=== PATIENT | male | born 1955 | race Caucasian/White ===

== ENCOUNTER → 2018-08-27 | Outpatient (CLI) | payer BC ==
--- NOTE | 2018-08-28 08:35 | PCVCIMAG ---
APPROVED REPORT Study performed: 08/27/2018 16:31:32 Exam: Stress Echocardiogram Indication: Hyperlipidemia, Hypertension, Family history of CAD Patient Location: Echo lab Stress Nurse: Linnette Graf RN Status: routine Ht: 6 ft 0 in HR: 98 bpm BP: 130/80 mmHg Rhythm: NSR Medical History Medical History: Hyperlipidemia, HTN Exercise History: Physically active Procedure The patient underwent an Exercise Stress Test using the Denzel Protocol. Blood pressure, heart rate, and EKG were monitored. An Echocardiogram was performed by tire technician in four stages in quad fashion. At peak stress, four selected images were obtained and placed side by side with resting images for comparison. Stress Test Details Stress Test: Exercise stress testing was performed using a Denzel protocol. HR Resting HR: 98 bpmMax Heart Rate (APMHR): 160 bpm Max HR Achieved: 157 bpmTarget HR (85% APMHR): 136 bpm % of APMHR: 98 Recovery HR: 112 bpm HR response to stress: Normal HR response to stress BP Resting BP: 130/80 mmHg Max BP: 202/78 mmHg Recovery BP: 158/76 mmHg BP response to stress: Normal blood pressure response to stress. ECG Resting ECG: Sinus Rhythm Stress ECG: Sinus Rhythm Recovery ECG: Sinus Rhythm Clinical Reason for Termination: Maximal effort Exercise duration: 9 min 05 sec Highest Stage Achieved: Stage 3: 3.4 mph at 14% grade. Exercise capacity: 10.30 METs Overall Exercise Capacity for Age: Normal Pre-Stress Echo The resting Echocardiogram showed normal left ventricular contractility with an estimated Ejection Fraction of about 55-60%. Normal wall motion in all segments on baseline images. Post-Stress Echo The stress Echocardiogram showed normal left ventricular contractility with an estimated Ejection Fraction of about 60-65%. Clinical No clinical or ECG evidence for ischemia. Conclusion Clinical Response: Non-ischemic Exercise Capacity: Average Stress ECG Response: Non-ischemic Stress Echo Images: Ischemic The left ventricle is normal in size and wall thickness in both the rest and stress images. Other Information Study Quality: Good <Conclusion> The left ventricle is normal in size and wall thickness in both the rest and stress images.
== END | disposition home or self-care (01) ==
LOC: PCVCIMAG 16:15
PROVIDERS: ATTEND Internal Medicine Cardiovascular Disease
DX: I25.10 Atherosclerotic heart disease of native coronary artery without angina pectoris (principal); R93.1 Abnormal findings on diagnostic imaging of heart and coronary circulation; R06.02 Shortness of breath; I10 Essential (primary) hypertension; E78.5 Hyperlipidemia, unspecified; Z82.49 Family history of ischemic heart disease and other diseases of the circulatory system
CPT/HCPCS: 93325; 93351

== ENCOUNTER → 2019-07-21 | Outpatient (CLI) | payer BC ==
--- NOTE | 2019-07-21 17:03 | PCVCIMAG ---
APPROVED REPORT Study performed: 07/21/2019 16:17:55 Exam: Stress Echocardiogram Indication: CAD,elevated coronary calcium , Hypertension, Pre-Operative CV evaluation Patient Location: Echo lab Stress Nurse: Emma Green RN Room #: 2 Status: routine Ht: 6 ft 0 in HR: 65 bpm BP: 136/74 mmHg Rhythm: NSR Medical History Medical History: CAD non obstructive, HTN Cardiac Risk Factors: FHX of CAD, HTN Previous Cardiac Procedures: none Pretest Chest Pain Characteristics: No chest pain Exercise History: Indeterminate Physical Disabilities: Knees Procedure The patient underwent an Exercise Stress Test using the Denzel Protocol. Blood pressure, heart rate, and EKG were monitored. An Echocardiogram was performed by fiberglass technician in four stages in quad fashion. At peak stress, four selected images were obtained and placed side by side with resting images for comparison. Stress Test Details Stress Test: Exercise stress testing was performed using a Denzel protocol. HR Resting HR: 65 bpmMax Heart Rate (APMHR): 159 bpm Max HR Achieved: 146 bpmTarget HR (85% APMHR): 135 bpm % of APMHR: 91 Recovery HR: 106 bpm HR response to stress: Normal HR response to stress BP Resting BP: 136/74 mmHg Max BP: 202/80 mmHg Recovery BP: 168/80 mmHg BP response to stress: Normal blood pressure response to stress. ECG Resting ECG: Sinus Rhythm Stress ECG: Sinus Rhythm ST Change: Non-ischemic Maximum ST Deviation: -0.45 mm Arrhythmia: occ PACs Recovery ECG: Sinus Rhythm Recovery ST Change: Non-ischemic Recovery ST Deviation: -0.70 mm Recovery Arrhythmia: APC Clinical Reason for Termination: Maximal effort Stress Symptoms: fatigue Exercise duration: 6 min 46 sec Highest Stage Achieved: Stage 3: 3.4 mph at 14% grade. Exercise capacity: 9.3 METs Overall Exercise Capacity for Age: Poor Scale: Sedentary Angina Score: None No complications. Stress ECG Conclusion Ochoa Treadmill Score is 8.3 which is Low risk. Pre-Stress Echo The resting Echocardiogram showed normal left ventricular contractility with an estimated Ejection Fraction of about 55-60%. Normal wall motion in all segments on baseline images. Post-Stress Echo The stress Echocardiogram showed normal left ventricular contractility with an estimated Ejection Fraction of about 65-70%. Normal augmentation of wall motion in all segments on post stress images. Clinical No clinical or ECG evidence for ischemia. Conclusion Clinical Response: Non-ischemic Exercise Capacity: Below Average Stress ECG Response: Non-ischemic Stress Echo Images: Non-ischemic No clinical, EKG or echocardiographic evidence for ischemia. No echocardiographic evidence for exercise induced ischemia. Normal stress echocardiogram with maximal exercise stress. Normal color doppler. No regurgitation or stenosis present on pulmonic, mitral, tricuspid and aortic valves. <Conclusion> No clinical, EKG or echocardiographic evidence for ischemia. No echocardiographic evidence for exercise induced ischemia. Normal stress echocardiogram with maximal exercise stress. Normal color doppler. No regurgitation or stenosis present on pulmonic, mitral, tricuspid and aortic valves.
== END | disposition home or self-care (01) ==
LOC: PCVCIMAG 16:00
PROVIDERS: ATTEND Internal Medicine Cardiovascular Disease
DX: I25.10 Atherosclerotic heart disease of native coronary artery without angina pectoris (principal); R93.1 Abnormal findings on diagnostic imaging of heart and coronary circulation; I10 Essential (primary) hypertension
CPT/HCPCS: 93325; 93351